=== PATIENT | female | born 1995 | race Caucasian/White ===

== ENCOUNTER 2019-07-01 16:56 | Inpatient (IN) | payer MEDICAID ==
[2019-07-01] MEDS ORDERED: Sodium Chloride 0.9% 10 ML Syringe FLUSH PRN (19:20)
[2019-07-01] MEDS ORDERED: Nalbuphine 10 MG/ML Syringe IVPUSH PRN (19:20)
[2019-07-01] MEDS ORDERED: Ondansetron 4 MG/2 ML SDV IVPUSH PRN (19:20)
[2019-07-01] MEDS ORDERED: Oxytocin/Lactated Ringers 10 UNIT/1,000 ML BAG IV SCH ×2 (19:30→21:30)
[2019-07-01] MEDS ORDERED: ePHEDrine 50 MG/ML SDV IVPUSH PRN (21:31)
[2019-07-01] MEDS ORDERED: Bupivacaine/fentaNYL/NS 100 ML Bag EPIDUR PRN (21:31)
[2019-07-01] MEDS ORDERED: diphenhydrAMINE 50 MG/ML SDV IVPUSH PRN (21:31)
[2019-07-01] MEDS ORDERED: fentaNYL 100 MCG/2 ML SDV EPIDUR PRN (21:31)
[2019-07-01] MEDS: Lactated Ringers 1,000 ML IV SCH ×2 (21:43→22:59)
--- NOTE | 2019-07-01 22:28 | PCM.PREANE ---
Preanesthetic Assessment - Procedure Proposed Procedure: james - Anesthesia/Transfusion/Family Hx Anesthesia History: Prior Anesthesia Without Reaction Family History of Anesthesia Reaction: No Transfusion History: No Prior Transfusion(s) - Review of Systems General: No Symptoms Pulmonary: No Symptoms Cardiovascular: No Symptoms Gastrointestinal: No Symptoms Neurological: No Symptoms Other: Reports: Thyroid Problems (hyper- was on meds and now regulated) - Physical Assessment Vital Signs: Last Vital Signs Temp 98.1 F 07/01/19 18:57 Pulse 99 07/01/19 18:57 Resp 16 07/01/19 18:57 BP 128/72 07/01/19 18:57 Pulse Ox 97 07/01/19 18:57 Height: 5 ft 4 in Weight: 85.185 kg ASA Class: 2 Mental Status: Alert & Oriented x3 Airway Class: Mallampati = 1 Dentition: Reports: Normal Dentition Thyro-Mental Finger Breadths: 3 Mouth Opening Finger Breadths: 3 ROM/Head Extension: Full Lungs: Clear to Auscultation, Normal Respiratory Effort Cardiovascular: Regular Rate, Regular Rhythm - Lab Values: Laboratory Last Values WBC 12.91 K/mm3 (3.98-10.04) H 07/01/19 19:35 RBC 3.65 M/mm3 (3.98-5.22) L 07/01/19 19:35 Hgb 11.2 gm/dl (11.2-15.7) 07/01/19 19:35 Hct 33.5 % (34.1-44.9) L 07/01/19 19:35 MCV 91.8 fl (79.4-94.8) 07/01/19 19:35 MCH 30.7 pg (25.6-32.2) 07/01/19 19:35 MCHC 33.4 g/dl (32.2-35.5) 07/01/19 19:35 RDW Std Deviation 42.5 fL (36.4-46.3) 07/01/19 19:35 Plt Count 342 K/mm3 (182-369) 07/01/19 19:35 MPV 9.1 fl (9.4-12.3) L 07/01/19 19:35 Neut % (Auto) 69.3 % (34.0-71.1) 07/01/19 19:35 Lymph % (Auto) 18.8 % (19.3-51.7) L 07/01/19 19:35 Trigg % (Auto) 8.8 % (4.7-12.5) 07/01/19 19:35 Eos % (Auto) 2.1 (0.7-5.8) 07/01/19 19:35 Baso % (Auto) 0.2 % (0.1-1.2) 07/01/19 19:35 Neut # (Auto) 8.95 K/mm3 (1.56-6.13) H 07/01/19 19:35 Lymph # (Auto) 2.43 K/mm3 (1.18-3.74) 07/01/19 19:35 Trigg # (Auto) 1.13 K/mm3 (0.24-0.36) H 07/01/19 19:35 Eos # (Auto) 0.27 K/mm3 (0.04-0.36) 07/01/19 19:35 Baso # (Auto) 0.03 K/mm3 (0.01-0.08) 07/01/19 19:35 RPR Non-reactive (NONREACTIVE) 07/01/19 19:35 Blood Type O POSITIVE 07/01/19 19:35 Gel Antibody Screen Negative 07/01/19 19:35 - Allergies Allergies/Adverse Reactions: Allergies Allergy/AdvReac Type Severity Reaction Status Date / Time Penicillins Allergy Anaphylactic Verified 07/01/19 19:05 Shock - Blood Blood Available: No - Acknowledgements Anesthesia Type Planned: Epidural Pt an Appropriate Candidate for the Planned Anesthesia: Yes Alternatives and Risks of Anesthesia Discussed w Pt/Guardian: Yes Pt/Guardian Understands and Agrees with Anesthesia Plan: Yes PreAnesthesia Questionnaire Cardiovascular History: Reports: None Respiratory History: Reports: None Gastrointestinal History: Reports: None [employer] History: Reports: : 3 Para: 2 Psychiatric History: Reports: Other (See Below) Other Psychiatric History: post depression Endocrine/Metabolic History: Reports: Other (See Below) (hyperthyroidism) Oncologic (Cancer) History: Reports: None - Past Surgical History HEENT Surgical History: Reports: Adenoidectomy, Tonsillectomy GI Surgical History: Reports: Appendectomy Female Surgical History: Reports: Section - SUBSTANCE USE Smoking Status *Q: Current Every Day Smoker Tobacco Use Within Last Twelve Months: Cigarettes Second Hand Smoke Exposure: Yes Days Per Week of Alcohol Use: 0 Recreational Drug Use History: No - HOME MEDS Home Medications: Home Meds Vits #93/Iron Fum/FA [ Formula Tablet] 07/01/19 [History] - CURRENT (IN HOUSE) MEDS Current Meds: Current Medications Diphenhydramine HCl (Benadryl) 25 mg IVPUSH Q6H PRN PRN Reason: pruritis Ephedrine Sulfate (Ephedrine Sulfate) 5 mg IVPUSH ASDIRECTED PRN PRN Reason: Hypotension Fentanyl (Sublimaze) 100 mcg EPIDUR Q3H PRN PRN Reason: Pain Fentanyl/Bupivacaine HCl (Fentanyl/Bupivacaine/Ns 2 Mcg-0.125% 100 Ml) 100 ml EPIDUR ASDIRECTED PRN PRN Reason: Pain Lactated Ringer's (Ringers, Lactated) 1,000 mls @ 100 mls/hr IV ASDIRECTED SUPA Last Admin: 07/01/19 21:43 Dose: 100 mls/hr Oxytocin/Lactated Ringer's (Pitocin In Lr 10 Units/1,000 Ml) 10 unit in 1,000 mls @ 500 mls/hr IV .CONTINUOUS SUPA Oxytocin/Lactated Ringer's (Pitocin In Lr 10 Units/1,000 Ml) 10 unit in 1,000 mls @ 12 mls/hr IV TITRATE SUPA; Protocol Last Titration: 07/01/19 22:19 Dose: 4 munits/min, 24 mls/hr Nalbuphine HCl (Nubain) 10 mg IVPUSH Q2H PRN PRN Reason: Pain Ondansetron HCl (Zofran) 4 mg IVPUSH Q4H PRN PRN Reason: Nausea/Vomiting Sodium Chloride (Saline Flush) 10 ml FLUSH ASDIRECTED PRN PRN Reason: Keep Vein Open
[2019-07-02] MEDS ORDERED: Bupivacaine 0.25% 10 ML SDV ONE
[2019-07-02] MEDS: Lactated Ringers 1,000 ML IV SCH (00:07)
--- NOTE | 2019-07-02 01:31 | PCM.LDHP ---
L&D History of Present Illness - General Date of Service: 07/01/19 Admit Problem/Dx: Patient Status Order with Admit Dx/Problem 07/01/19 19:20 Patient Status [ADT] Routine Admission Diagnosis/Problem Admission Diagnosis/Problem 07/02/19 01:21 Tyrone is a 23-year-old 3 para 2001 white female is admitted for elective induction of labor at 39-0/7 weeks gestational age with an CATINA of 2019. Source of Information: Patient History Limitations: Reports: No Limitations - History of Present Illness Introduction:: Tyrone is a 23-year-old 3 para 2000 white female is admitted for elective induction of labor at 39-0/7 weeks gestational age with an CATINA of 2019.The procedure of induction of labor, its risks, benefits, alternatives of care including waiting for natural onset of labor discussed with patient and her boyfriend. They appear to understand and wish to proceed. Cervix is 3 cm, 80 % effaced, bulging bag ramírez, -3 station but well applied to the cervix, mid position. Artificial rupture membranes is undertaken. Patient tolerated this well and she had clear amniotic fluid. heart tones are reassuring. [employer] history 3 para 2001. CATINA 07/08/2019 by an ultrasound done in [place] at 13 weeks gestational age and supported by another ultrasound done on 03/31/2019. Patient has a history of previous section was done for nonreassuring heart tones. She has successfully since that time. Patient had menarche at approximately age 14. Cycles approximately every month but's last visit. Somewhat unknown. Not using any control time conception. There is included the followin. Male infant born 02/07/2015 at 40 weeks gestational age after 5 hours labor. An 8 lbs. 1 oz. male born in [place], [place] by section done for nonreassuring heart tones. Child's name is Bud. 2. Female infant born 03[birth year]2018 at 40 weeks gestational age after 4 hours of labor. Was a vaginal after section after traveler labor after section. 6 lbs. 11 oz. female born in [place], [place]. Baby's name is Geraldine. course: Patient transferred her care to our clinic 03/31/2019 at 25-6/7 weeks having received her care up to that point in [facility]. She is seen on a very infrequent basis. Her weight gain in was from a pregravid weight of 169 pounds up to 178.4 pounds. Her vital signs were stable during course. He desired a . She did successfully and was allowed to attempt. She is group B strep negative. She declined genetic testing. She is late to care to our clinic. She is a smoker. Patient did receive her diphtheria and pertussis tetanus immunization on 05/06/2019. She is rubella immune. laboratory testing shows blood to be O+ with a negative MRI screen. First labs on 03/31/2027 are clinic showed hemoglobin 13.1 g/dL and platelets at 294,000. She is rubella immune. RPR and hepatitis B surface antigen tests were negative. Entering chlamydia evaluation negative. TSH at that time was normal at 3.04 mU/mL. Group B strep screen was negative. Patient did not do a 1 hour GTT. Allergies: Penicillin which causes anaphylaxis. Medications: 1. vitamins 1 by mouth daily. Past medical history: 1. Vaginal after section 03/14/2018. 2. depression after her most recent 3. Hypothyroidism left first . This resolved. 4. Anaphylaxis with penicillin therapy Past surgical history: 1. T and a new prepped 2. Appendectomy 3. section with first Family history: Mother is alive but has history of colitis. Father is alive and well. 2 brothers are alive and well. Maternal grandmother is alive but with obesity and thyroid issues. Maternal grandfather is alive and well. Paternal grandmother mother and paternal grandfather are alive and well. No known history of female cancers, leading her blood clotting disorders, anesthesia- related issues or -related issues. He did have a distant aunt with diagnosis of breast cancer at age 30 which was diagnosed at stage IV. Social history: Patient is single. Her significant other is Miguelito Griffith. They live in [place], [place]. She is high school graduate. 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 She is not using any significant loss of alcohol or drugs but does smoke. Review of systems: In general patient has no complaints. He has been active. Skin: Negative Lungs: No infectious symptoms or shortness of breath Cardiovascular: No chest pain or exercise intolerance Breasts: Changes associated with . Patient plans to breast-feed. GI: Negative : Increasing abdominal girth consistent with Musculoskeletal: Negative Neurological: Negative In general the patient is well-developed, well-nourished, pleasant female of stated age in no acute distress. Skin is warm dry without lesions. HEENT, neck and back within normal limits. Lungs are clear with good breath sounds in all lung orozco. Cardiovascular exam shows regular and rhythm without murmurs. Abdomen is avid with fundal height consistent with term Genital digital exam as per above.. Extremities and neurological exam are grossly within normal limits. Pain Score: 7 - Related Data Allergies/Adverse Reactions: Allergies Allergy/AdvReac Type Severity Reaction Status Date / Time Penicillins Allergy Anaphylactic Verified 07/01/19 19:05 Shock Home Medications: Home Meds Vits #93/Iron Fum/FA [ Formula Tablet] 07/01/19 [History] Past Medical History Cardiovascular History: Reports: None Respiratory History: Reports: None Gastrointestinal History: Reports: None [employer] History: Reports: Psychiatric History: Reports: Other (See Below) Other Psychiatric History: post depression Endocrine/Metabolic History: Reports: Other (See Below) (hyperthyroidism) Oncologic (Cancer) History: Reports: None - Past Surgical History HEENT Surgical History: Reports: Adenoidectomy, Tonsillectomy GI Surgical History: Reports: Appendectomy Female Surgical History: Reports: Section Social & Family History - Tobacco Use Smoking Status *Q: Current Every Day Smoker Years of Tobacco use: 7 Packs/Tins Daily: 0.5 Second Hand Smoke Exposure: Yes - Alcohol Use Days Per Week of Alcohol Use: 0 - Recreational Drug Use Recreational Drug Use: No H&P Review of Systems - Review of Systems: Review Of Systems: See Below L&D Exam - Exam Exam: See Below - Vital Signs Vital Signs: Last Vital Signs Temp 36.7 C 07/01/19 18:57 Pulse 99 07/01/19 18:57 Resp 16 07/01/19 18:57 BP 128/72 07/01/19 18:57 Pulse Ox 97 07/01/19 18:57 Weight: 85.185 kg - Patient Data Lab Results Last 24 hrs: Laboratory Results - last 24 hr 07/01/19 07/01/19 07/01/19 Range/Units 19:35 19:35 19:35 WBC 12.91 H (3.98-10.04) K/mm3 RBC 3.65 L (3.98-5.22) M/mm3 Hgb 11.2 (11.2-15.7) gm/dl Hct 33.5 L (34.1-44.9) % MCV 91.8 (79.4-94.8) fl MCH 30.7 (25.6-32.2) pg MCHC 33.4 (32.2-35.5) g/dl RDW Std Deviation 42.5 (36.4-46.3) fL Plt Count 342 (182-369) K/mm3 MPV 9.1 L (9.4-12.3) fl Neut % (Auto) 69.3 (34.0-71.1) % Lymph % (Auto) 18.8 L (19.3-51.7) % Maury % (Auto) 8.8 (4.7-12.5) % Eos % (Auto) 2.1 (0.7-5.8) Baso % (Auto) 0.2 (0.1-1.2) % Neut # (Auto) 8.95 H (1.56-6.13) K/mm3 Lymph # (Auto) 2.43 (1.18-3.74) K/mm3 Maury # (Auto) 1.13 H (0.24-0.36) K/mm3 Eos # (Auto) 0.27 (0.04-0.36) K/mm3 Baso # (Auto) 0.03 (0.01-0.08) K/mm3 RPR Non-reactive (NONREACTIVE) Blood Type O POSITIVE Gel Antibody Screen Negative Result Diagrams: 07/01/19 19:35 Problem List Initiated/Reviewed/Updated: Yes Orders Last 24hrs: Active Orders 24 hr Category Date Time Status Patient Status [ADT] Routine ADT 07/01/19 19:20 Active Activity as Tolerated [RC] PFP Care 07/01/19 19:20 Active Antiembolic Devices [RC] PER UNIT ROUTINE Care 07/01/19 22:41 Active Communication Order [RC] ASDIRECTED Care 07/01/19 19:20 Active Heart Tones [RC] ASDIRECTED Care 07/01/19 19:20 Active Monitoring [RC] CONTINUOUS Care 07/01/19 19:21 Active Non Stress Test [RC] PER UNIT ROUTINE Care 07/01/19 19:20 Active Notify Provider [RC] ASDIRECTED Care 07/01/19 21:31 Active Notify Provider [RC] PFP Care 07/01/19 19:20 Active Notify Provider [RC] PRN Care 07/01/19 19:20 Active Peripheral IV Care [RC] . DIRECTED Care 07/01/19 19:20 Active Urinary Catheter Assessment [RC] ASDIRECTED Care 07/01/19 22:41 Active Urinary Catheter Insertion [Insert Urinary Catheter] [ Care 07/01/19 22:45 Ordered OM.PC] Q24H Verify Patient Consent Obtain [RC] ASDIRECTED Care 07/01/19 19:22 Active Vital Signs [RC] PER UNIT ROUTINE Care 07/01/19 19:20 Active Bupivacaine/fentaNYL/NS [fentaNYL/Bupivacaine/NS 2 MCG- Med 07/01/19 21:31 Active 0.125% 100 ML] 100 ml EPIDUR ASDIRECTED PRN Lactated Ringers [Ringers, Lactated] 1,000 ml Med 07/01/19 19:30 Active IV ASDIRECTED Nalbuphine [Nubain] Med 07/01/19 19:20 Active 10 mg IVPUSH Q2H PRN Ondansetron [Zofran] Med 07/01/19 19:20 Active 4 mg IVPUSH Q4H PRN Oxytocin/Lactated Ringers [Pitocin in LR 10 Units/1,000 Med 07/01/19 19:30 Active ML] 10 unit in 1,000 ml IV .CONTINUOUS Oxytocin/Lactated Ringers [Pitocin in LR 10 Units/1,000 Med 07/01/19 21:30 Active ML] 10 unit in 1,000 ml IV TITRATE Sodium Chloride 0.9% [Saline Flush] Med 07/01/19 19:20 Active 10 ml FLUSH ASDIRECTED PRN diphenhydrAMINE [Benadryl] Med 07/01/19 21:31 Active 25 mg IVPUSH Q6H PRN ePHEDrine [ePHEDrine sulfate] Med 07/01/19 21:31 Active 5 mg IVPUSH ASDIRECTED PRN fentaNYL [Sublimaze] Med 07/01/19 21:31 Active 100 mcg EPIDUR Q3H PRN Electronic Heart Tones Ext w TOCO [WOMSER] Oth 07/01/19 19:20 Ordered Routine Electronic Heart Tones Internal [WOMSER] Per Unit Oth 07/01/19 19:20 Ordered Routine Peripheral IV Insertion Adult [OM.PC] Routine Oth 07/01/19 19:20 Ordered SCD [Sequential Compression Device] [OM.PC] Routine Oth 07/01/19 22:41 Ordered Resuscitation Status Routine Resus Stat 07/01/19 19:20 Ordered Medication Orders Diphenhydramine HCl (Benadryl) 25 mg IVPUSH Q6H PRN PRN Reason: pruritis Ephedrine Sulfate (Ephedrine Sulfate) 5 mg IVPUSH ASDIRECTED PRN PRN Reason: Hypotension Fentanyl (Sublimaze) 100 mcg EPIDUR Q3H PRN PRN Reason: Pain Last Admin: 07/01/19 22:51 Dose: 100 mcg Fentanyl/Bupivacaine HCl (Fentanyl/Bupivacaine/Ns 2 Mcg-0.125% 100 Ml) 100 ml EPIDUR ASDIRECTED PRN PRN Reason: Pain Last Admin: 07/01/19 22:51 Dose: 100 ml Lactated Ringer's (Ringers, Lactated) 1,000 mls @ 100 mls/hr IV ASDIRECTED SUPA Last Admin: 07/02/19 00:07 Dose: 100 mls/hr Infusion: 07/02/19 00:00 Dose: 999 mls/hr Admin: 07/01/19 22:59 Dose: 999 mls/hr Infusion: 07/01/19 22:59 Dose: 999 mls/hr Infusion: 07/01/19 22:40 Dose: 999 mls/hr Admin: 07/01/19 21:43 Dose: 100 mls/hr Oxytocin/Lactated Ringer's (Pitocin In Lr 10 Units/1,000 Ml) 10 unit in 1,000 mls @ 500 mls/hr IV .CONTINUOUS SUPA Oxytocin/Lactated Ringer's (Pitocin In Lr 10 Units/1,000 Ml) 10 unit in 1,000 mls @ 12 mls/hr IV TITRATE SUPA; Protocol Last Titration: 07/01/19 22:19 Dose: 4 munits/min, 24 mls/hr Admin: 07/01/19 21:43 Dose: 2 munits/min, 12 mls/hr Nalbuphine HCl (Nubain) 10 mg IVPUSH Q2H PRN PRN Reason: Pain Ondansetron HCl (Zofran) 4 mg IVPUSH Q4H PRN PRN Reason: Nausea/Vomiting Sodium Chloride (Saline Flush) 10 ml FLUSH ASDIRECTED PRN PRN Reason: Keep Vein Open Assessment/Plan Comment:: 1. 39-0/7 week intrauterine on admission for elective induction of labor for distance from hospital 2. Negative group B strep 3. Patient plans to breast-feed 4. Patient desires epidural in labor. 5. History of previous sectio with desire for trial of labor after section for attempt at vaginal after section. Patient has successful and is a good candidate for . 6. Patient is rubella immune. 7. She has received her T dap 8. Risks include the following: Patient is a smoker, distance from hospital, history of previous section, suboptimal frequency of care Plan: 1. Trial labor after section attempt a vaginal after section. Procedure, risks, benefits, alternatives of care including doing a repeat section all discussed with patient. She appears understand and wishes to proceed. 2. Preoperative section labs upon admission. 3. IV access 4. Near continuous monitoring 5. Surgery and anesthesia will be made aware of patient's attempt. 6. Routine labor care. 7. Anticipate normal spontaneous vaginal delivery. Plan:
--- NOTE | 2019-07-02 01:42 | PCM.SN.2 ---
- Free Text/Narrative Note: Delivery note: Tyrone is a 23-year-old 3 para 2001 white female is admitted on 2019 for elective induction of labor at 39-0/7 weeks gestational age with an CATINA of 07/08/2019.The procedure of induction of labor, its risks, benefits, alternatives of care including waiting for natural onset of labor discussed with patient and her boyfriend. She is admitted on the evening of 07/01/2019. She is found to be 3+ centimeters dilated, 80% effaced, -3 station but well applied to the cervix, mid position to anterior position, soft consistency. Artificial rupture membranes was undertaken. Patient had clear amniotic fluid. She progressed into labor. Sometime later Pitocin was added to augment labor. She quickly went to complete cervical dilation by approximately 0053 hours on . She pushed one contraction and delivered a viable, wood, male infant with Apgars of 8 and 9, weight 2810 g (6 pounds 3.1 ounces), length of 19.75 inches in a left occiput anterior position. Nose and mouth the baby were suctioned and baby was placed on mom's abdomen. He was dried with a warm blanket. The cord was allowed to pulsate for approximately 2 minutes and was clamped 2 and cut by the baby's father Miguelito. Cord blood was obtained. The umbilical cord had 3 vessels present within it. The placenta delivered in a Mccloud fashion was somewhat ragged membranes. Did however. Complete and was discarded per patient desire. Patient had no lacerations therefore no sutures were placed. She did receive Pitocin 500 mL per hour per protocol after the baby delivered facilitate increase in uterine tone and decrease likelihood of bleeding. She plans to breast-feed. A single loss was 100 mL. Condition: Good.
[2019-07-02] MEDS ORDERED: Witch Hazel Medicated Pads 40/Jar TOP PRN (01:55)
[2019-07-02] MEDS ORDERED: Benzocaine/Menthol 20%-0.5% Spray 56 GM Canister TOP PRN (01:55)
[2019-07-02] MEDS ORDERED: Docusate Sodium 100 MG Cap PO PRN (01:55)
[2019-07-02] MEDS ORDERED: Ibuprofen 600 MG Tab PO PRN (01:55)
--- NOTE | 2019-07-02 07:51 | PCM48HPAN ---
Post Anesthesia Note - EVALUATION WITHIN 48HRS OF ANESTHETIC Vital Signs in Normal Range: Yes Patient Participated in Evaluation: Yes Respiratory Function Stable: Yes Airway Patent: Yes Cardiovascular Function Stable: Yes Hydration Status Stable: Yes Pain Control Satisfactory: Yes Nausea and Vomiting Control Satisfactory: Yes Mental Status Recovered: Yes Vital Signs: Last Vital Signs Temp 36.7 C 07/01/19 18:57 Pulse 99 07/01/19 18:57 Resp 16 07/01/19 18:57 BP 128/72 07/01/19 18:57 Pulse Ox 97 07/01/19 18:57
--- NOTE | 2019-07-02 07:58 | PCM.SN.2 ---
- Free Text/Narrative Note: note: Day of delivery Patient is doing well in the period. Minimal lochia, voiding well, ambulated without problems. Nursing without concerns. Patient is afebrile, vital signs are stable Abdomen is flat, soft, uterus is below the umbilicus and is firm and nontender. Legs are nontender. Assessment: recovery going well. Plan: Routine care. Patient be discharged home within the next 24- 48 hours.
[2019-07-02] MEDS: Prenatal Multivitamin with Calcium/Folic Acid/Iron Tab PO SCH (09:19)
[2019-07-02] MEDS: Acetaminophen 325 MG Tab PO PRN (10:41)
[2019-07-03] MEDS: Acetaminophen 325 MG Tab PO PRN (03:57)
--- NOTE | 2019-07-03 07:42 | PCM.DCSUM1 ---
Discharge Summary - Hospital Course Free Text/Narrative:: Tyrone is a 23-year-old 3 para 2001 white female is admitted on 2019 for elective induction of labor at 39-0/7 weeks gestational age with an CATINA of 07/08/2019.The procedure of induction of labor, its risks, benefits, alternatives of care including waiting for natural onset of labor discussed with patient and her boyfriend. She is admitted on the evening of 07/01/2019. She is found to be 3+ centimeters dilated, 80% effaced, -3 station but well applied to the cervix, mid position to anterior position, soft consistency. Artificial rupture membranes was undertaken. Patient had clear amniotic fluid. She progressed into labor. Sometime later Pitocin was added to augment labor. She quickly went to complete cervical dilation by approximately 0053 hours on . She pushed one contraction and delivered a viable, wood, male with Apgars of 8 and 9, weight 2810 g (6 pounds 3.1 ounces), length of 19.75 inches in a left occiput anterior position. Nose and mouth the baby were suctioned and baby was placed on mom's abdomen. He was dried with a warm blanket. The cord was allowed to pulsate for approximately 2 minutes and was clamped 2 and cut by the baby's father Miguelito. Cord blood was obtained. The umbilical cord had 3 vessels present within it. The placenta delivered in a Mccloud fashion was somewhat ragged membranes. Did however. Complete and was discarded per patient desire. Patient had no lacerations therefore no sutures were placed. She did receive Pitocin 500 mL per hour per protocol after the baby delivered facilitate increase in uterine tone and decrease likelihood of bleeding. patient is doing well. Nursing is going well. She is having minimal lochia, voiding without problems and ambulating well. She is desiring discharge home. She plans to breast-feed. A single loss was 100 mL. Condition: Good Diagnosis: Stroke: No - Discharge Data Discharge Date: 07/03/19 Discharge Disposition: Home, Self-Care 01 Condition: Good - Referral to Home Health Primary Care Physician: Parviz Philip MD - Patient Instructions Diet: Regular Diet as Tolerated (Nursing diet was increased calories and calcium is recommended) Activity: As Tolerated (No intercourse or tampons until bleeding resolves) Driving: May Drive Today Showering/Bathing: May Shower (May take a bath) Notify Provider of: Fever, Increased Pain, Swelling and Redness, Nausea and/or Vomiting - Discharge Plan Home Medications: Home Meds Vits #93/Iron Fum/FA [ Formula Tablet] 07/01/19 [History] Acetaminophen [Tylenol] 650 mg PO Q4H PRN tablet 07/03/19 [Rx] Ibuprofen [Motrin] 600 mg PO Q4H PRN tablet 07/03/19 [Rx] Patient Handouts: Steps to Quit Smoking Referrals: Parviz Philip MD [Primary Care Provider] - (The patient is to call. [facility] to set up a telehealth appointment for 2 weeks from the time of discharge. ) - Discharge Summary/Plan Comment DC Time >30 min.: No Discharge Summary/Plan Comment: Discharge instructions: 1. Discharge home 2. Diet, activity and follow-up discussed with patient. Recommend nursing diet with increased calories and calcium. 3. Precautions given concern increased pain, bleeding, temperature, signs/ symptoms of DVT/PE. 4. Medications per home medication was printed, discussed with and given to the patient. 5. Patient is to call clinic for a telehealth appointment-Dr. Philip-[facility]-appointment should be in 2 weeks. Diagnosis: Term -delivered Condition: Good - Patient Data Vitals - Most Recent: Last Vital Signs Temp 37.1 C 07/03/19 04:20 Pulse 64 07/03/19 04:20 Resp 16 07/03/19 04:20 BP 118/54 L 07/03/19 04:20 Pulse Ox 98 07/03/19 04:20 Weight - Most Recent: 85.185 kg Med Orders - Current: Current Medications Acetaminophen (Tylenol) 650 mg PO Q4H PRN PRN Reason: mild pain or fever Last Admin: 07/03/19 03:57 Dose: 650 mg Benzocaine/Menthol (Dermoplast Pain Relief [place]) 0 gm TOP ASDIRECTED PRN PRN Reason: Perineal Comfort Measure Docusate Sodium (Colace) 100 mg PO BID PRN PRN Reason: Constipation Ibuprofen (Motrin) 600 mg PO Q4H PRN PRN Reason: Mild pain or fever Last Admin: 07/02/19 15:38 Dose: 600 mg Prenat Multivit/Faulkner/Iron/Folic Ac ( Plus Iron) 1 each PO DAILY SUPA Last Admin: 07/02/19 09:19 Dose: 1 each Andrew Otto (Gregcks) 1 pad TOP ASDIRECTED PRN PRN Reason: Perineal Comfort Measure Discontinued Medications Bupivacaine HCl (Sensorcaine-Mpf 0.25%) 10 ml .ROUTE .K-MED ONE Stop: 07/02/19 00:01 Diphenhydramine HCl (Benadryl) 25 mg IVPUSH Q6H PRN PRN Reason: pruritis Ephedrine Sulfate (Ephedrine Sulfate) 5 mg IVPUSH ASDIRECTED PRN PRN Reason: Hypotension Fentanyl (Sublimaze) 100 mcg EPIDUR Q3H PRN PRN Reason: Pain Last Admin: 07/01/19 22:51 Dose: 100 mcg Fentanyl/Bupivacaine HCl (Fentanyl/Bupivacaine/Ns 2 Mcg-0.125% 100 Ml) 100 ml EPIDUR ASDIRECTED PRN PRN Reason: Pain Last Admin: 07/01/19 22:51 Dose: 100 ml Lactated Ringer's (Ringers, Lactated) 1,000 mls @ 100 mls/hr IV ASDIRECTED SUPA Last Admin: 07/02/19 00:07 Dose: 100 mls/hr Oxytocin/Lactated Ringer's (Pitocin In Lr 10 Units/1,000 Ml) 10 unit in 1,000 mls @ 500 mls/hr IV .CONTINUOUS SUPA Oxytocin/Lactated Ringer's (Pitocin In Lr 10 Units/1,000 Ml) 10 unit in 1,000 mls @ 12 mls/hr IV TITRATE SUPA; Protocol Last Titration: 07/02/19 01:06 Dose: 500 mls/hr Nalbuphine HCl (Nubain) 10 mg IVPUSH Q2H PRN PRN Reason: Pain Ondansetron HCl (Zofran) 4 mg IVPUSH Q4H PRN PRN Reason: Nausea/Vomiting Sodium Chloride (Saline Flush) 10 ml FLUSH ASDIRECTED PRN PRN Reason: Keep Vein Open
[2019-07-03] MEDS: Prenatal Multivitamin with Calcium/Folic Acid/Iron Tab PO SCH (11:45)
== END 2019-07-03 09:58 | disposition home or self-care (01) | DRG 807 ==
LOC: JD.OB 18:43 → OBSVTOIN 07-02 01:05 → JD.MS 07-02 01:06 → JD.OB 07-02 05:47
PROVIDERS: ADMIT Obstetrics & Gynecology; ATTEND Obstetrics & Gynecology
PROC: 10E0XZZ Delivery of Products of Conception, External Approach (ICD-10-PCS; principal; 2019-07-02)
PROC: 10907ZC Drainage of Amniotic Fluid, Therapeutic from Products of Conception, Via Natural or Artificial Opening (ICD-10-PCS; 2019-07-02)
PROC: 3E0R3BZ Introduction of Anesthetic Agent into Spinal Canal, Percutaneous Approach (ICD-10-PCS; 2019-07-02)
DX: O99.334 Smoking (tobacco) complicating childbirth (principal); Z37.0 Single live birth; F17.210 Nicotine dependence, cigarettes, uncomplicated; Z3A.39 39 weeks gestation of pregnancy; Z88.0 Allergy status to penicillin
CPT/HCPCS: 36415; 51702; 59025; 59409; 85025; 86592; 86850; 86900; 86901; A9270-GY; J2590; J3010; J3490; J7120